=== PATIENT | female | born 1940 | race Caucasian/White ===

== ENCOUNTER → 2016-10-05 | Day surgery (SDC) | payer MEDICARE, OTHER ==
[~2016-10-05] VITALS: Ht 162.6 cm; Wt 89.5 kg
[2016-10-05 08:46] LABS: HCT 39.3 % (37.0-47.0); HGB 12.7 g/dl (12.5-16.0); MCH 27.5 pg (25.0-31.0); MCHC 32.3 g/dL (32.0-36.0); MCV 85.2 fL (78.0-100.0); MPV 11.3 fL (6.0-9.5); RBC 4.61 M/uL (4.20-5.40); RDW 14.9 % (11.5-14.0); WBC 6.7 K/uL (4.0-10.5)
[2016-10-05 09:09] LABS: ALBUMIN 3.8 g/dL (3.4-4.8); BILIRUBIN - TOTAL 0.7 mg/dL (0.1-1.0); CREATININE 1.1 mg/dL (0.5-1.0); GLOBULIN (CALCULATION) 3.4 g/dL (2.2-4.2); POTASSIUM 3.9 mmol/L (3.5-5.1); TOTAL PROTEIN 7.2 g/dL (6.4-8.3)
== END | disposition home or self-care (01) ==
LOC: FAS 08:09
PROVIDERS: Surgery
DX: K21.0 Gastro-esophageal reflux disease with esophagitis (principal); K58.9 Irritable bowel syndrome, unspecified; K57.30 Diverticulosis of large intestine without perforation or abscess without bleeding; F41.9 Anxiety disorder, unspecified; N39.0 Urinary tract infection, site not specified; M19.90 Unspecified osteoarthritis, unspecified site; I10 Essential (primary) hypertension; J30.9 Allergic rhinitis, unspecified; Z98.1 Arthrodesis status; Z88.2 Allergy status to sulfonamides; Z88.6 Allergy status to analgesic agent; Z90.710 Acquired absence of both cervix and uterus; Z90.49 Acquired absence of other specified parts of digestive tract; Z96.659 Presence of unspecified artificial knee joint; Z87.442 Personal history of urinary calculi; Z79.899 Other long term (current) drug therapy
CPT/HCPCS: 36415; 80053; 88305

== ENCOUNTER → 2021-03-05 | Day surgery (SDC) | payer MEDICARE, OTHER ==
[~2021-03-05] VITALS: Ht 162.6 cm; Wt 100.5 kg
[~2021-03-05] MED LIST: ACETAMINOPHEN500 M1 PO; ASPIRIN325 MG PO; BACLOFEN 10MG T10 MG PO; FEOSOL325 MG PO; HCTZ25 MG PO; LAXATIVE OF CHOICE; LEXAPRO 10MG TA10 MG PO; MEDROL 4MG DOSEP4 MG PO; MIRALAX17 GM PO; OXY-IR 5MG5 MG PO; PERCOCET 5-3251 EACH PO; ZESTRIL5 MG PO
[2021-03-05 07:00] LABS: HCT 38.4 % (37.0-47.0); HGB 12.6 g/dl (12.5-16.0); MCH 29.9 pg (25.0-31.0); MCHC 32.8 g/dL (32.0-36.0); MCV 91.2 fL (78.0-100.0); MPV 10.2 fL (6.0-9.5); RBC 4.21 M/uL (4.20-5.40); RDW 13.4 % (11.5-14.0); WBC 6.7 K/uL (4.0-10.5)
== END | disposition home or self-care (01) ==
LOC: FAS 06:09
PROVIDERS: Orthopaedic Surgery
DX: G56.03 Carpal tunnel syndrome, bilateral upper limbs (principal)
CPT/HCPCS: 36415; 71045; 93005; J1040; J1100; J2250; J2405; J2704; J3010; J7120